=== PATIENT | female | born 1935 | race Caucasian/White ===

== ENCOUNTER 2016-11-16 14:24 | Observation (INO) | payer MEDICARE, BC ==
[~2016-11-16] VITALS: Ht 162.6 cm; Wt 77.0 kg
[~2016-11-16 14:24] MED LIST: ACIPHEX20 MG; ALLEGRA ALLERG180 MG PO; ALLEGRA30 MG PO; AMITRIPTYLINE H25 MG; AMOXICILLIN500 MG; ASPIR 8181 MG PO; AUGMENTIN875 MG/TA1 PO; B COMPLEX1 CAP PO; BENADRYL TP; BENTYL10 M1 PO; BENTYL10 MG PO; CIPRO; CLONAZEPAM0.5 M1 PO; CYMBALTA60 M1 PO; DIABETA2.5 MG PO; ELAVIL25 MG PO; ELAVIL50 MG PO; FEXOFENADINE H180 MG; GLUCOPHAGE500 M3 PO; GLYBURID METFOR; GUAIFENESIN400 MG PO; HYDROCODON-ACE1 EAC8 PO; LISINOPRIL20 MG PO; MILK OF MA400 MG/5 M PO; MILK OF MAGNESIA PO; MIRALAX17 G1 PO; NORCO 5/3251 TAB PO; NORVASC10 M2 PO; OMEPRAZOLE20 M1 PO; OMEPRAZOLE20 M2 PO; OXYCODONE/APAP PO; PLAVIX75 MG PO; PREMARIN45 GM VG; PREVACID30 MG; PRINIVIL10 M1 PO; PROTONIX40 M2 PO; TANDEM PO; TENORETIC 50 TA1 TAB; THERMOTABS TAB1 EACH PO; TYLENOL325 MG PO; XARELTO10 MG PO; [UNRECOGNIZED DRUG - OTHER]
[2016-11-16] MEDS ORDERED: RANEXA500 M1 PO (15:12)
[2016-11-16] MEDS ORDERED: CLARITIN10 M6 PO (15:13)
[2016-11-16] MEDS ORDERED: DEXILANT60 M1 PO (15:13)
[2016-11-16] MEDS ORDERED: METOPROLOL SUCC25 M1 PO (15:13)
[2016-11-16] MEDS ORDERED: PLAVIX75 M1 PO (15:13)
[2016-11-16 15:16] LABS: ALB/GLOB RATIO 0.9 (0.8-2.0); ALBUMIN 3.6 g/dl (3.5-5.0); ALKALINE PHOSPHATASE 65 U/L (33-138); ALT/SGPT 40 U/L (12-78); ANION GAP 12 mmol/L (0-20); AST/SGOT 90 U/L (10-40); BILIRUBIN,TOTAL 0.5 mg/dl (0-1.5); BLOOD UREA NITROGEN 17 mg/dl (6-24); CALCIUM 8.5 mg/dl (8.5-10.5); CARBON DIOXIDE-VENOUS 25 mmol/L (22-32); CHLORIDE 94 mmol/l (96-110); CREATININE 0.92 mg/dl (0.50-1.10); GLUCOSE 245 mg/dL (70-110); POTASSIUM 3.9 mmol/L (3.7-5.1); SODIUM 127 mmol/L (135-145); eGFR VALUE FOR BLACK 69 mL/Min
[2016-11-16] MEDS ORDERED: VITAMIN B COMP1 EAC1 PO (15:39)
[2016-11-16 17:04] LABS: HCT-HEMATOCRIT 36.3 % (34.0-49.0); HGB-HEMOGLOBIN 11.8 gm/dl (12.0-15.5); IMMATURE GRANULOCYTES ABSOLUTE 0.06 tho/cmm (0-0.03); IMMATURE GRANULOCYTES PERCENT 0.3 % (0-0.3); LYMPH ABSOLUTE COUNT 0.4 tho/cmm (0.8-4.5); MCH (MEAN CORPUSCULAR HGB) 29.6 pg (28.0-32.0); MCHC MEAN CORPUSCULAR HGB CONC 32.5 % (32.0-36.0); MCV (MEAN CELL VOLUME) 91.2 fl (82.0-96.0); MEAN PLATELET VOLUME 9.4 cmc (9.4-12.4); MONOCYTE ABSOLUTE COUNT 0.5 tho/cmm (0.0-1.2); NEUTROPHIL ABSOLUTE COUNT 17.2 tho/cmm (1.6-8.0); NEUTROPHIL-AUTOMATED 17.2 tho/cmm (1.6-8.0); NEUTROPHILS % 94.7 % (40-80); PLATELET COUNT 167 tho/cmm (150-450); RED BLOOD COUNT 3.98 mil/cmm (4.00-5.20); RED CELL DISTRIBUTION WIDTH 15.2 % (12.4-16.4); WHITE BLOOD COUNT 18.2 tho/cmm (4.0-10.0)
[2016-11-16 19:04] LABS: URINE BILIRUBIN NEGATIVE (NEG); URINE BLOOD NEGATIVE (NEG); URINE GLUCOSE (UA) NEGATIVE (NEG); URINE KETONE NEGATIVE (NEG); URINE LEUKOCYTE ESTERASE POSITIVE (NEG); URINE NITRITE NEGATIVE (NEG); URINE PROTEIN SMALL (NEG)
[2016-11-16 19:07] LABS: URINE APPEARANCE CLOUDY; URINE COLOR YELLOW
[2016-11-16 19:10] LABS: URINE AMORPHOUS 1+; URINE BACTERIA 1+; URINE EPITHELIAL CELLS 0-2 /[HPF] (0-10); URINE RBC 0 /[HPF] (0-5)
[2016-11-17 09:15] LABS: ANION GAP 12 mmol/L (0-20); BLOOD UREA NITROGEN 10 mg/dl (6-24); CALCIUM 8.7 mg/dl (8.5-10.5); CARBON DIOXIDE-VENOUS 29 mmol/L (22-32); CHLORIDE 96 mmol/l (96-110); CREATININE 0.66 mg/dl (0.50-1.10); GLUCOSE 187 mg/dL (70-110); POTASSIUM 4.1 mmol/L (3.7-5.1); SODIUM 133 mmol/L (135-145); eGFR VALUE FOR BLACK >90 mL/Min
[2016-11-17] MEDS ORDERED: TOPROL XL25 M1 PO (13:47)
[2016-11-17] MEDS ORDERED: METAMUCIL SUGA283 GM PO (13:51)
[2016-11-17] MEDS ORDERED: PROTONIX40 M2 PO (13:52)
== END 2016-11-17 14:20 ==
LOC: EDMED 14:24 → EMR2 19:13 → CAR1 19:13
PROVIDERS: Emergency Medicine; Family Medicine; Physician Assistant; ADMIT Internal Medicine Cardiovascular Disease
DX: R10.13 Epigastric pain (principal); E78.5 Hyperlipidemia, unspecified; E11.9 Type 2 diabetes mellitus without complications; I10 Essential (primary) hypertension; I25.10 Atherosclerotic heart disease of native coronary artery without angina pectoris; R74.0 Nonspecific elevation of levels of transaminase and lactic acid dehydrogenase [LDH]; K21.9 Gastro-esophageal reflux disease without esophagitis; K58.9 Irritable bowel syndrome, unspecified; K56.7 Ileus, unspecified; Z79.02 Long term (current) use of antithrombotics/antiplatelets; Z79.84 Long term (current) use of oral hypoglycemic drugs; Z79.899 Other long term (current) drug therapy; Z88.8 Allergy status to other drugs, medicaments and biological substances; Z80.0 Family history of malignant neoplasm of digestive organs
CPT/HCPCS: C9113; Q9967